=== PATIENT | female | born 1945 | race Caucasian/White ===

== ENCOUNTER 2021-11-30 19:06 | Observation (INO) | payer OTHER ==
[~2021-11-30] VITALS: Ht 167.6 cm; Wt 67.1 kg
[2021-12-01 00:26] LABS: HEMOGLOBIN 11.7 gm/dl (12.3-15.3); RED BLOOD COUNT 3.8 M/UL (4.00-5.10); WHITE BLOOD COUNT 8.4 K/UL (4.5-11.0)
[2021-12-01 00:48] LABS: BUN/CREATININE RATIO 16 (0-10)
[2021-12-01] MEDS ORDERED: RESTORIL 30 MG30 MG PO (10:06)
[2021-12-01] MEDS ORDERED: SYMBICORT 16010.2 GM INH (10:06)
[2021-12-01] MEDS ORDERED: NEURONTIN300 MG PO (10:12)
[2021-12-01] MEDS ORDERED: BUMETANIDE2 MG PO (10:12)
[2021-12-01] MEDS ORDERED: METOPROLOL TAR100 MG PO (10:13)
[2021-12-01] MEDS ORDERED: PROTONIX 40 MG40 M1 PO (10:14)
[2021-12-01] MEDS ORDERED: AMLODIPINE BES2.5 MG PO (10:15)
[2021-12-01] MEDS ORDERED: LEVOTHYROXINE100 MCG PO (10:16)
[2021-12-01] MEDS ORDERED: CELEXA 20MG TAB20 MG PO (10:17)
[2021-12-01] MEDS ORDERED: CYCLOBENZAPRINE10 MG PO (10:18)
[2021-12-01] MEDS ORDERED: ESTRADIOL42.5 GM VG (10:19)
[2021-12-01] MEDS ORDERED: FERROUS SULFAT325 M2 PO (10:20)
[2021-12-01] MEDS ORDERED: MAG-OX 400 TAB400 MG PO (10:21)
[2021-12-01] MEDS ORDERED: HYOSCYAMINE0.125 MG PO (10:21)
[2021-12-01] MEDS ORDERED: POTASSIUM CHLO20 ME2 PO (10:22)
[2021-12-01] MEDS ORDERED: MYRBETRIQ50 MG PO (10:22)
[2021-12-01] MEDS ORDERED: ARTHRITIS PAIN150 GM TP (10:23)
[2021-12-01] MEDS ORDERED: CRESTOR20 MG PO (10:24)
[2021-12-01] MEDS ORDERED: LOSARTAN POTASS50 MG PO (13:38)
--- NOTE | 2021-12-02 10:20 | NUR ---
spoken to kenyon landeros
[2021-12-03 02:55] LABS: HEMOGLOBIN 10.1 gm/dl (12.3-15.3); WHITE BLOOD COUNT 9.8 K/UL (4.5-11.0)
[2021-12-03 03:15] LABS: RED BLOOD COUNT 3.36 M/UL (4.00-5.10)
[2021-12-03] MEDS ORDERED: ASPIRIN EC81 MG PO (12:56)
[2021-12-03] MEDS ORDERED: POLYETHYLENE GL17 GM PO (12:56)
[2021-12-03] MEDS ORDERED: LOPRESSOR 50 MG50 MG PO (13:28)
[2021-12-03] MEDS ORDERED: MACROBID 100 M100 MG PO (13:33)
== END 2021-12-03 16:56 | disposition home or self-care (01) ==
LOC: ER1 19:06 → CDU 12-01 06:48 → M/S 12-01 12:02
PROVIDERS: Internal Medicine; Nurse Practitioner; ADMIT Internal Medicine
DX: R10.30 Lower abdominal pain, unspecified (principal); I25.118 Atherosclerotic heart disease of native coronary artery with other forms of angina pectoris; I71.00 Dissection of unspecified site of aorta; I42.2 Other hypertrophic cardiomyopathy; E87.6 Hypokalemia; J44.9 Chronic obstructive pulmonary disease, unspecified; I10 Essential (primary) hypertension; Z95.5 Presence of coronary angioplasty implant and graft; Z95.828 Presence of other vascular implants and grafts; Z98.890 Other specified postprocedural states; Z87.891 Personal history of nicotine dependence; Z88.1 Allergy status to other antibiotic agents
CPT/HCPCS: ECHO; 71045; 80048; 80053; 80076; 81001; 82550; 82553; 83605; 83690; 83735; 84100; 84484; 85025; 85027; 85379; 86850; 86900; 86901; 87086; 93005; 93306; 94640; 94760; 96374; 96375; 96376; 99285; G0378; J2270; J2405; Q9967